=== PATIENT | female | born 1970 | race Caucasian/White ===

== ENCOUNTER → 2018-07-15 | Outpatient (CLI) | payer OTHER ==
--- NOTE | 2018-07-15 11:12 | FL ---
EXAMINATION TYPE: FL UGI air DATE OF EXAM: 07/15/2018 COMPARISON: NONE HISTORY: Epigastric and abdominal pain per order. History of hiatal hernia per patient at outside [facility]. TECHNIQUE: A double contrast UGI study is performed. A total of 58 seconds of fluoroscopic time was utilized during procedure. 47 images are saved to PACS. FINDINGS: Medical Laboratory Technicians image of the abdomen shows partial visualization of at least moderate to large size hiatal hernia with suspected abnormal twisting of stomach. There is metallic IUD in the pelvis partia lly imaged. There is levoconvex scoliosis centered L3 level noted. The esophagus shows normal motility and emptying into the stomach. There is large hiatal hernia or in trathoracic stomach with abnormal twisting as greater curvature is cranial in position relative to le sser curvature. Portion of gastric fundus and antrum is below diaphragm. There is prominence of gastr ic folds in the intrathoracic stomach. There is visualization of episodic gastroesophageal reflux int o the midesophagus. No evidence of any mass or ulcer disease. . The duodenal bulb, sweep, and proximal small bowel loops are unremarkable below the diaphragm. IMPRESSION: Large hiatal hernia or intrathoracic stomach with abnormal twisting or configuration is c onfirmed with moderate gastroesophageal reflux and mild to moderate diffuse gastritis documented.
== END ==
LOC: RADFLMAIN 10:01
PROVIDERS: ATTEND Family Medicine
DX: K44.9 Diaphragmatic hernia without obstruction or gangrene (principal)
CPT/HCPCS: 74246

== ENCOUNTER 2018-10-11 15:19 | Emergency (ER) | payer OTHER ==
[2018-10-11] MEDS ORDERED: SODIUM CHLORIDE 0.9% 1,000 ML IV STA (15:38)
--- NOTE | 2018-10-11 15:40 | ED ---
General Adult HPI - General Chief complaint: Abdominal Pain Stated complaint: Poss kidney infection Time Seen by Provider: 10/11/18 15:27 Source: patient, RN notes reviewed, old records reviewed Mode of arrival: ambulatory Limitations: no limitations - History of Present Illness Initial comments: 48-year-old female patient with past history of depression presents to ED with abdominal pain for one day. Patient states she woke up this morning had some pain in her right lower quadrant region. Patient states he now has pain in her right flank region. Patient states that this does feel similar to kidney infections she has had in the past. Patient denies any nausea vomiting diarrhea or fevers or chills. Patient denies any chest pain or shortness of breath. Systemic: Pt denies fatigue, myalgia, fever/chills, rash. Pt denies weakness, night sweats, weight loss. Neuro: Pt denies headache, visual disturbances, syncope or pre-syncope. HEENT: Pt denies ocular discharge or irritation, otalgia, rhinorrhea, pharyngitis or notable lymphadenopathy. Cardiopulmonary: Pt denies chest pain, SOB, heart palpitations, dyspnea on exertion. Abdominal/GI: Pt denies n/v/d. : Pt denies dysuria, burning w/ urination, frequency/urgency. Denies new onset urinary or bowel incontinence. MSK: Pt denies myalgia, loss of strength or function in extremities. Neuro: Pt denies new onset weakness, paresthesias. - Related Data Home Medications Medication Instructions Recorded Confirmed Ferrous Sulfate [Iron] 325 mg PO DAILY 10/11/18 10/11/18 Omeprazole 20 mg PO DAILY 10/11/18 10/11/18 Oxybutynin Chloride [Ditropan XL] 10 mg PO DAILY 10/11/18 10/11/18 Sertraline [Zoloft] 25 mg PO DAILY 10/11/18 10/11/18 Allergies Allergy/AdvReac Type Severity Reaction Status Date / Time No Known Allergies Allergy Verified 10/11/18 15:56 Review of Systems ROS Statement: Those systems with pertinent positive or pertinent negative responses have been documented in the HPI. ROS Other: All systems not noted in ROS Statement are negative. Past Medical History Past Medical History: No Reported History History of Any Multi-Drug Resistant Organisms: None Reported Past Surgical History: Tubal Ligation Past Psychological History: No Psychological Hx Reported Smoking Status: Never smoker Past Drug Use History: None Reported General Exam - General Exam Comments Initial Comments: Constitutional: NAD, AOX3, Pt has pleasant affect. HEENT: NC/AT, trachea midline, neck supple, no lymphadenopathy. Posterior pharynx non erythematous, without exudates. External ears appear normal, without discharge. Mucous membranes moist. Eyes PERRLA, EOM intact. There is no scleral icterus. No pallor noted. Cardiopulmonary: RRR, no murmurs, rubs or gallops, no JVD noted. Lungs CTAB in anterior and posterior fall. No peripheral edema. Abdominal exam: Abdomen soft and non-distended. Abdomen mildly tender to palpation in periumbilical region. Vásquez sign negative. No guarding or rigidity. Bowel sounds active in LLQ. No hepatosplenomegaly. No ecchymosis Neuro: CN II-XII grossly intact. No nuchal rigidity. MSK: No posterior calf tenderness bilaterally, homans sign negative bilaterally. Posterior tibialis and radial pulse +2 bilaterally. Sensation intact in upper and lower extremities. Full active ROM in upper and lower extremities, 5/5 stregnth. Limitations: no limitations Course Vital Signs 10/11/18 10/11/18 10/11/18 15:23 18:00 19:00 Temperature 97.4 F L Pulse Rate 82 60 70 Respiratory 22 18 20 Rate Blood Pressure 138/83 122/78 141/65 O2 Sat by Pulse 99 96 99 Oximetry 10/11/18 20:45 Temperature 98.3 F Pulse Rate 68 Respiratory 20 Rate Blood Pressure 132/88 O2 Sat by Pulse 99 Oximetry Medical Decision Making - Medical Decision Making 48-year-old female patient with past history of depression presents to ED with abdominal pain for one day. Patient states she woke up this morning had some pain in her right lower quadrant region. Patient states he now has pain in her right flank region. Patient states that this does feel similar to kidney infections she has had in the past. Patient denies any nausea vomiting diarrhea or fevers or chills. Patient denies any chest pain or shortness of breath. Patient vital signs stable, afebrile. Physical exam displayed abdomen mildly tender to periumbilical region. No CVA tenderness. No other areas of abdominal tenderness. Vásquez sign negative. Laboratory investigations revealed an impressive CBC, CMP, UA, hCG. Lactic acid within normal limits. CT abdomen and pelvis displayed right adnexal cyst. Patient was discharged and will follow up with [facility]. Patient return to ER condition worsens in any way. Case disc ussed with Dr. Morrow. - Lab Data Result diagrams: 10/11/18 16:00 10/11/18 16:00 Lab Results 10/11/18 10/11/18 10/11/18 Range/Units 16:00 16:00 16:00 WBC 13.5 H (3.8-10.6) k/uL RBC 5.06 (3.80-5.40) m/uL Hgb 15.4 (11.4-16.0) gm/dL Hct 47.0 H (34.0-46.0) % MCV 92.8 (80.0-100.0) fL MCH 30.4 (25.0-35.0) pg MCHC 32.7 (31.0-37.0) g/dL RDW 13.2 (11.5-15.5) % Plt Count 199 (150-450) k/uL Neutrophils % 88 % Lymphocytes % 7 % Monocytes % 4 % Eosinophils % 1 % Basophils % 0 % Neutrophils # 11.8 H (1.3-7.7) k/uL Lymphocytes # 1.0 (1.0-4.8) k/uL Monocytes # 0.5 (0-1.0) k/uL Eosinophils # 0.1 (0-0.7) k/uL Basophils # 0.0 (0-0.2) k/uL Sodium 137 (137-145) mmol/L Potassium 4.2 (3.5-5.1) mmol/L Chloride 105 (98-107) mmol/L Carbon Dioxide 24 (22-30) mmol/L Anion Gap 8 mmol/L BUN 9 (7-17) mg/dL Creatinine 0.65 (0.52-1.04) mg/dL Est GFR (CKD-EPI)AfAm >90 (>60 ml/min/1.73 sqM) Est GFR (CKD-EPI)NonAf >90 (>60 ml/min/1.73 sqM) Glucose 106 H (74-99) mg/dL Plasma Lactic Acid [place] 0.8 (0.7-2.0) mmol/L Calcium 8.8 (8.4-10.2) mg/dL Total Bilirubin 0.8 (0.2-1.3) mg/dL AST 32 (14-36) U/L ALT 29 (9-52) U/L Alkaline Phosphatase 103 (38-126) U/L Total Protein 6.9 (6.3-8.2) g/dL Albumin 3.9 (3.5-5.0) g/dL Lipase 46 (23-300) U/L Urine Color Urine Appearance (Clear) Urine pH (5.0-8.0) Ur Specific [place] (1.001-1.035) Urine Protein (Negative) Urine Glucose (UA) (Negative) Urine Ketones (Negative) Urine Blood (Negative) Urine Nitrite (Negative) Urine Bilirubin (Negative) Urine Urobilinogen (<2.0) mg/dL Ur Leukocyte Esterase (Negative) Urine RBC (0-5) /hpf Urine WBC (0-5) /hpf Ur Squamous Epith Cells (0-4) /hpf Urine Mucus (None) /hpf Urine HCG, Qual (Not Detectd) 10/11/18 10/11/18 Range/Units 17:15 17:15 WBC (3.8-10.6) k/uL RBC (3.80-5.40) m/uL Hgb (11.4-16.0) gm/dL Hct (34.0-46.0) % MCV (80.0-100.0) fL MCH (25.0-35.0) pg MCHC (31.0-37.0) g/dL RDW (11.5-15.5) % Plt Count (150-450) k/uL Neutrophils % % Lymphocytes % % Monocytes % % Eosinophils % % Basophils % % Neutrophils # (1.3-7.7) k/uL Lymphocytes # (1.0-4.8) k/uL Monocytes # (0-1.0) k/uL Eosinophils # (0-0.7) k/uL Basophils # (0-0.2) k/uL Sodium (137-145) mmol/L Potassium (3.5-5.1) mmol/L Chloride (98-107) mmol/L Carbon Dioxide (22-30) mmol/L Anion Gap mmol/L BUN (7-17) mg/dL Creatinine (0.52-1.04) mg/dL Est GFR (CKD-EPI)AfAm (>60 ml/min/1.73 sqM) Est GFR (CKD-EPI)NonAf (>60 ml/min/1.73 sqM) Glucose (74-99) mg/dL Plasma Lactic Acid [place] (0.7-2.0) mmol/L Calcium (8.4-10.2) mg/dL Total Bilirubin (0.2-1.3) mg/dL AST (14-36) U/L ALT (9-52) U/L Alkaline Phosphatase (38-126) U/L Total Protein (6.3-8.2) g/dL Albumin (3.5-5.0) g/dL Lipase (23-300) U/L Urine Color Yellow Urine Appearance Cloudy H (Clear) Urine pH 8.0 (5.0-8.0) Ur Specific [place] 1.014 (1.001-1.035) Urine Protein Trace H (Negative) Urine Glucose (UA) Negative (Negative) Urine Ketones Negative (Negative) Urine Blood Moderate H (Negative) Urine Nitrite Negative (Negative) Urine Bilirubin Negative (Negative) Urine Urobilinogen 2.0 (<2.0) mg/dL Ur Leukocyte Esterase Small H (Negative) Urine RBC 1 (0-5) /hpf Urine WBC 1 (0-5) /hpf Ur Squamous Epith Cells 6 H (0-4) /hpf Urine Mucus Rare H (None) /hpf Urine HCG, Qual Not Detected (Not Detectd) Disposition Clinical Impression: Abdominal pain Disposition: HOME SELF-CARE Condition: Stable Instructions (If sedation given, give patient instructions): Abdominal Pain (ED) Additional Instructions: Patient to adhere to previously discussed treatment plan and will take medication(s) as directed. Patient to follow up with PCP in 1-2 days. Patient to return to ED if symptoms do not improve. Follow-up with primary care provider in 1-2 days. Follow-up with OB consult for evaluation of possible adnexal cyst. Is patient prescribed a controlled substance at d/c from ED?: No Referrals: Kasey Nieves DO [Primary Care Provider] - 1-2 days Cm Wesley MD [STAFF PHYSICIAN] - 1-2 days
[2018-10-11 16:12] LABS: Basophils % (A) 0 %; Eosinophils # (A) 0.1 k/uL (0-0.7); Eosinophils % (A) 1 %; HGB 15.4 gm/dL (11.4-16.0); Lymphocytes % (A) 7 %; MCH 30.4 pg (25.0-35.0); MCHC 32.7 g/dL (31.0-37.0); MCV 92.8 fL (80.0-100.0); Mean Platelet Volume 8.6; Monocytes # (A) 0.5 k/uL (0-1.0); Monocytes % (A) 4 %; Neutrophils # (A) 11.8 k/uL (1.3-7.7); Neutrophils % (A) 88 %; Platelet Count 199 k/uL (150-450); RBC 5.06 m/uL (3.80-5.40); RDW 13.2 % (11.5-15.5); WBC 13.5 k/uL (3.8-10.6)
[2018-10-11 16:21] LABS: ALT 29 U/L (9-52); AST 32 U/L (14-36); Albumin 3.9 g/dL (3.5-5.0); Alkaline Phosphatase 103 U/L (38-126); Anion Gap 8 mmol/L; Blood Urea Nitrogen 9 mg/dL (7-17); Calcium 8.8 mg/dL (8.4-10.2); Carbon Dioxide 24 mmol/L (22-30); Chloride 105 mmol/L (98-107); Glucose 106 mg/dL (74-99); Lipase 46 U/L (23-300); Potassium 4.2 mmol/L (3.5-5.1); Sodium 137 mmol/L (137-145); Total Bilirubin 0.8 mg/dL (0.2-1.3); Total Protein 6.9 g/dL (6.3-8.2)
[2018-10-11 17:49] LABS: Appearance,Urine Cloudy (Clear); Bilirubin,Urine Negative (Negative); Blood,Urine Moderate (Negative); Color,Urine Yellow; Glucose,Urine (UA) Negative (Negative); Ketones,Urine Negative (Negative); Leukocyte Esterase,Urine Small (Negative); Mucus,Urine Rare /hpf; Nitrite,Urine Negative (Negative); Protein,Urine Trace (Negative); RBC,Urine 1 /hpf (0-5); Specific Gravity,Urine 1.014 (1.001-1.035); Squamous Epithelial Cell,Urine 6 /hpf (0-4); WBC,Urine 1 /hpf (0-5)
--- NOTE | 2018-10-11 18:57 | CT ---
EXAMINATION TYPE: CT abdomen pelvis w con DATE OF EXAM: 10/11/2018 COMPARISON: None HISTORY: Right lower quadrant and right flank pain today. CT DLP: 1597.4 mGycm Automated exposure control for dose reduction was used. TECHNIQUE: Helical acquisition of images was performed from the lung bases through the pelvis. CONTRAST: Performed without Oral Contrast and with IV Contrast, patient injected with 100 mL of Isovu e 300. FINDINGS: LUNG BASES: No acute process. However, nearly the entire stomach is intrathoracic in position; only t he antrum remains intra-abdominal. LIVER/BILIARY: No definite acute process. However, there is diffuse biliary tree ductal prominence, b oth intrahepatic and extrahepatic. LFT correlation for significance requested. PANCREAS: No significant abnormality is seen. SPLEEN: No significant abnormality is seen. ADRENALS: No significant abnormality is seen. KIDNEYS: No significant abnormality is seen. PERITONEAL CAVITY: No pneumoperitoneum. RETROPERITONEAL ADENOPATHY: None visualized REPRODUCTIVE ORGANS: There is a 5 cm in diameter cyst like right adnexal mass, which cannot be well c haracterized. Two-week for six-week follow-up LE Doppler ultrasound can further characterize this fin ding, located posterior to the uterus to the right of midline. Associated small volume of cul-de-sac fluid is noted. Intrauterine device is noted. URINARY BLADDER: No significant abnormality is seen. PELVIC ADENOPATHY: None visualized. OSSEOUS STRUCTURES: No significant abnormality is seen. BOWEL: There is no bowel obstruction. The cecum is relatively high riding, at the level of the super ior iliac crest. The appendix appears to be retrocecal in position, arising cephalad there is asymmet panchito mild indistinct right lateral conal fascial thickening with scant. No fluid in the right paracoli c gutter of the right upper quadrant. 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 This second st ructure is smoothly marginated and radiologically unlikely to be clinically significant at this time. This can be further characterized with nuclear medicine Meckel's diverticulum imaging if there are c linical concerns for significance. OTHER: No acute vascular findings. Bilateral inguinal lymph nodes are noted, top normal in size; would request clinical surveillance fo r significance. IMPRESSION: 1. Mild right lateral conal fascia ill-defined thickening, with associate adjacent retrocecal append ix with normal appendix dimensions at present. Therefore, the study is not positive for appendicitis at this time. 2. 5 cm mean diameter right adnexal cyst like mass. 3. Intrahepatic and extrahepatic biliary tree caliber prominence. 4. Intrathoracic stomach. 5. Bilateral inguinal lymph nodes.
[2018-10-11 19:47] VITALS: RESP 20
[2018-10-11] MEDS ORDERED: Acetaminophen-Codeine 300-30mg TAB PO STA (20:40)
[2018-10-11 20:48] VITALS: BP 132/88; PULSE 68; TEMP 98.3
== END 2018-10-11 20:45 | disposition home or self-care (01) ==
LOC: EC 15:19
DX: R10.31 Right lower quadrant pain (principal); N83.8 Other noninflammatory disorders of ovary, fallopian tube and broad ligament; F32.9 Major depressive disorder, single episode, unspecified; Z79.899 Other long term (current) drug therapy; Z98.51 Tubal ligation status
CPT/HCPCS: 36415; 80053; 83605; 83690; 85025; 81001; 81025; 87086; 74177; 99284; 96360; Q9967

== ENCOUNTER → 2022-02-27 | Outpatient (CLI) | payer OTHER | END | disposition home or self-care (01) | LOC: RADMAMWWP 14:54 | PROVIDERS: ATTEND Family Medicine | DX: Z12.31 Encounter for screening mammogram for malignant neoplasm of breast (principal) | CPT/HCPCS: 77067 ==

== ENCOUNTER 2022-04-13 04:37 | Emergency (ER) | payer OTHER ==
[2022-04-13] MEDS ORDERED: SODIUM CHLORIDE 0.9% 500 ML 500 ML IV STA (04:45)
[2022-04-13 04:46] VITALS: TEMP 96.9
--- NOTE | 2022-04-13 04:46 | ED ---
Nausea/Vomiting/Diarrhea HPI <Fredi Nieves - Last Filed: 04/13/22 15:22> - General Source: EMS, RN notes reviewed, old records reviewed Mode of arrival: EMS Limitations: no limitations - History of Present Illness MD complaint: nausea, vomiting, diarrhea -: days(s) (2) Description of Vomiting: food contents, watery Description of Diarrhea: water, mucous Associated Abdominal Pain: Yes Location: diffuse Radiation: none Severity: mild Quality: cramping, aching Consistency: intermittent Improves with: none Worsens with: eating Context: possible food poisoning Associated Symptoms: loss of appetite, nausea/vomiting, weakness <Amadou Cade - Last Filed: 04/13/22 21:36> - General Chief complaint: Nausea/Vomiting/Diarrhea Stated complaint: Nausea, vomiting Time Seen by Provider: 04/13/22 04:44 - History of Present Illness Initial comments: This is a 52-year-old female the ER today. Patient presents by EMS for nausea vomiting diarrhea and crampy abdominal pain for 2 days patient states she was at [employer] maybe some bad food. No fevers no travel history no known other complaints (Amadou Cade) - Related Data Home Medications Medication Instructions Recorded Confirmed Ferrous Sulfate [Iron] 325 mg PO DAILY 10/11/18 10/11/18 Omeprazole 20 mg PO DAILY 10/11/18 10/11/18 Oxybutynin Chloride [Ditropan XL] 10 mg PO DAILY 10/11/18 10/11/18 Sertraline [Zoloft] 25 mg PO DAILY 10/11/18 10/11/18 Allergies Allergy/AdvReac Type Severity Reaction Status Date / Time No Known Allergies Allergy Verified 04/13/22 04:46 Review of Systems ROS Other: All systems not noted in ROS Statement are negative. <Fredi Nieves - Last Filed: 04/13/22 15:22> ROS Other: All systems not noted in ROS Statement are negative. <Amadou Cade - Last Filed: 04/13/22 21:36> ROS Statement: Those systems with pertinent positive or pertinent negative responses have been documented in the HPI. Past Medical History Past Medical History: No Reported History History of Any Multi-Drug Resistant Organisms: None Reported Past Surgical History: Tubal Ligation Past Psychological History: No Psychological Hx Reported Past Drug Use History: None Reported <Amadou Cade - Last Filed: 04/13/22 21:36> General Exam Limitations: no limitations General appearance: alert, in no apparent distress Head exam: Present: atraumatic, normocephalic, normal inspection Eye exam: Present: normal appearance, PERRL, EOMI. Absent: scleral icterus, conjunctival injection, periorbital swelling ENT exam: Present: normal exam, mucous membranes moist Neck exam: Present: normal inspection. Absent: tenderness, meningismus, lymphadenopathy Respiratory exam: Present: normal lung sounds bilaterally. Absent: respiratory distress, wheezes, rales, rhonchi, stridor Cardiovascular Exam: Present: regular rate, normal rhythm, normal heart sounds. Absent: systolic murmur, diastolic murmur, rubs, gallop, clicks GI/Abdominal exam: Present: soft, distended, tenderness, normal bowel sounds. Absent: guarding, rebound, rigid Extremities exam: Present: normal inspection, full ROM, normal capillary refill. Absent: tenderness, pedal edema, joint swelling, calf tenderness Back exam: Present: normal inspection Neurological exam: Present: alert, oriented X3, CN II-XII intact Psychiatric exam: Present: normal affect, normal mood Skin exam: Present: warm, dry, intact, normal color. Absent: rash <Amadou Cade - Last Filed: 04/13/22 21:36> Course <Amadou Cade - Last Filed: 04/13/22 21:36> Vital Signs 04/13/22 04/13/22 04:41 06:22 Temperature 96.9 F L Pulse Rate 70 77 Respiratory 18 20 Rate Blood Pressure 137/83 135/100 O2 Sat by Pulse 98 98 Oximetry - Reevaluation(s) Reevaluation #1: 04/13/22 medical record is reviewed (Amadou Cade) Reevaluation #2: 04/13/22 patient improving symptomatically (Amadou Cade) Reevaluation #3: 04/13/22 patient informed of results and questions answered (Amadou Cade) Medical Decision Making - Lab Data Result diagrams: 04/13/22 04:59 04/13/22 05:40 <Fredi Nieves - Last Filed: 04/13/22 15:22> - Lab Data Result diagrams: 04/13/22 04:59 04/13/22 05:40 - EKG Data -: EKG Interpreted by Me (EKG is sinus 76 MI 133 QRS 12 QTc 433) - Radiology Data Radiology results: report reviewed (Chest x-ray negative CTA chest negative, CT abdomen and pelvis positive paraEsophageal fistula possible ischemia), image reviewed <Amadou Cade - Last Filed: 04/13/22 21:36> - Medical Decision Making Patient is a 52-year-old female who presents to the emergency department with multiple days of nausea and vomiting as well as abdominal pain and chest pain presents emergency for further evaluation. She was signed out to me pending results of CT imaging. Initial workup was remarkable for leukocytosis of 23. Appears dehydrated and she also has elevated hemoglobin at this time. Troponin is undetectable. Lipase is slightly elevated to 338. Urinalysis is still pending. Lactic acid and blood cultures were not obtained and they were ordered by myself. CT angiogram of the chest revealed no signs of aortic dissection and no evidence of PE. CT of the abdomen and pelvis revealed a tight for dilated paraesophageal hernia with organoaxial volvulus as well as a decompressed duodenum and fluid-filled visualized esophagus. No pneumatosis. Trace perigastric free fluid. Cannot exclude ischemia. At this time I did empirically start the patient on broad-spectrum antibiotics Zosyn and vancomycin. Blood cultures were obtained and sent. Lactic acid was obtained and was slightly elevated at 2.2. She is already on maintenance IV fluids. The radiologist's read me his findings at 7:[address] Chatman and spoke with him at 7:20 AM. He states the patient requires a thoracic surgeon, recommended transfer if our surgeons refuse. I did reach out to our CT surgeons, and spoke with the mid-level provider Elias Khan.I spoke with Elias and he reached out to his attending physician and got back to me at 8 AM. They recommended transfer to higher level care. I spoke with the patient and updated her. She was in agreement with transfer. She has no preference at this time. We Did Discuss [facility] initially and she was in agreement. We Did Contact [facility]. I spoke with CT surgeon there Dr. Moore who accepted the patient. Was in agreement with the empiric anabiotics patient was started on as well as IV hydration, and nothing by mouth. Requested to be attempt an NG tube prior to transfer. The ER accepting doc is Dr. Sagastume who was notified by [facility] transfer team. I opted the patient she was in agreement this plan. Patient will be transferred in serious but stable condition. She is hemodynamically stable at this time. NG tube placement was successful, however patient did have multiple episodes of emesis and it was irritating her throat and she pulled it out. We will not replace it at this time. (Fredi Nieves) - Lab Data Lab Results 04/13/22 04/13/22 04/13/22 Range/Units 04:59 05:40 05:40 WBC 23.4 H (3.8-10.6) k/uL RBC 5.54 H (3.80-5.40) m/uL Hgb 16.8 H (11.4-16.0) gm/dL Hct 49.6 H (34.0-46.0) % MCV 89.6 (80.0-100.0) fL MCH 30.4 (25.0-35.0) pg MCHC 33.9 (31.0-37.0) g/dL RDW 13.0 (11.5-15.5) % Plt Count 150 (150-450) k/uL MPV 11.0 Neutrophils % 91 % Lymphocytes % 3 % Monocytes % 4 % Eosinophils % 0 % Basophils % 0 % Neutrophils # 21.4 H (1.3-7.7) k/uL Lymphocytes # 0.7 L (1.0-4.8) k/uL Monocytes # 1.0 (0-1.0) k/uL Eosinophils # 0.1 (0-0.7) k/uL Basophils # 0.1 (0-0.2) k/uL Sodium 144 (137-145) mmol/L Potassium 3.5 (3.5-5.1) mmol/L Chloride 96 L (98-107) mmol/L Carbon Dioxide 36 H (22-30) mmol/L Anion Gap 12 mmol/L BUN 29 H (7-17) mg/dL Creatinine 1.11 H (0.52-1.04) mg/dL Est GFR (CKD-EPI)AfAm 66 (>60 ml/min/1.73 sqM) Est GFR (CKD-EPI)NonAf 57 (>60 ml/min/1.73 sqM) Glucose 189 H (74-99) mg/dL Lactic Ac Sepsis Rflx Plasma Lactic Acid [place] (0.7-2.0) mmol/L Calcium 9.9 (8.4-10.2) mg/dL Phosphorus 3.4 (2.5-4.5) mg/dL Magnesium 2.4 H (1.6-2.3) mg/dL Total Bilirubin 0.9 (0.2-1.3) mg/dL AST 36 (14-36) U/L ALT 30 (4-34) U/L Alkaline Phosphatase 137 H (38-126) U/L Troponin I <0.012 (0.000-0.034) ng/mL Total Protein 8.4 H (6.3-8.2) g/dL Albumin 5.0 (3.5-5.0) g/dL Amylase 45 (30-110) U/L Lipase 338 H (23-300) U/L 04/13/22 04/13/22 Range/Units 07:51 08:23 WBC (3.8-10.6) k/uL RBC (3.80-5.40) m/uL Hgb (11.4-16.0) gm/dL Hct (34.0-46.0) % MCV (80.0-100.0) fL MCH (25.0-35.0) pg MCHC (31.0-37.0) g/dL RDW (11.5-15.5) % Plt Count (150-450) k/uL MPV Neutrophils % % Lymphocytes % % Monocytes % % Eosinophils % % Basophils % % Neutrophils # (1.3-7.7) k/uL Lymphocytes # (1.0-4.8) k/uL Monocytes # (0-1.0) k/uL Eosinophils # (0-0.7) k/uL Basophils # (0-0.2) k/uL Sodium (137-145) mmol/L Potassium (3.5-5.1) mmol/L Chloride (98-107) mmol/L Carbon Dioxide (22-30) mmol/L Anion Gap mmol/L BUN (7-17) mg/dL Creatinine (0.52-1.04) mg/dL Est GFR (CKD-EPI)AfAm (>60 ml/min/1.73 sqM) Est GFR (CKD-EPI)NonAf (>60 ml/min/1.73 sqM) Glucose (74-99) mg/dL Lactic Ac Sepsis Rflx Y Plasma Lactic Acid [place] 2.2 H* (0.7-2.0) mmol/L Calcium (8.4-10.2) mg/dL Phosphorus (2.5-4.5) mg/dL Magnesium (1.6-2.3) mg/dL Total Bilirubin (0.2-1.3) mg/dL AST (14-36) U/L ALT (4-34) U/L Alkaline Phosphatase (38-126) U/L Troponin I (0.000-0.034) ng/mL Total Protein (6.3-8.2) g/dL Albumin (3.5-5.0) g/dL Amylase (30-110) U/L Lipase (23-300) U/L Critical Care Time Critical Care Time: Yes Total Critical Care Time: 31 <Amadou Cade - Last Filed: 04/13/22 21:36> Disposition Time of Disposition: 08:32 - Out of Hospital Transfer - Req. Specs Out of Hospital Transfer - Requested Specifics: Other Emergency Center (Transfer to [facility] for Thoracic surgery.) <Fredi Nieves - Last Filed: 04/13/22 15:22> <Amadou Cade - Last Filed: 04/13/22 21:36> Clinical Impression: Paraesophageal hernia, Organoaxial gastric volvulus, Nausea and vomiting, De hydration, Gastroenteritis, Leukocytosis Disposition: OTHER INSTITUTION NOT DEFINED Condition: Serious Referrals: Kasey Nieves DO [Primary Care Provider] - 1-2 days
[2022-04-13 05:13] LABS: Basophils # (A) 0.1 k/uL (0-0.2); Basophils % (A) 0 %; Eosinophils # (A) 0.1 k/uL (0-0.7); Eosinophils % (A) 0 %; HCT 49.6 % (34.0-46.0); HGB 16.8 gm/dL (11.4-16.0); Lymphocytes # (A) 0.7 k/uL (1.0-4.8); Lymphocytes % (A) 3 %; MCH 30.4 pg (25.0-35.0); MCHC 33.9 g/dL (31.0-37.0); MCV 89.6 fL (80.0-100.0); Monocytes % (A) 4 %; Neutrophils # (A) 21.4 k/uL (1.3-7.7); Neutrophils % (A) 91 %; Platelet Count 150 k/uL (150-450); RBC 5.54 m/uL (3.80-5.40); WBC 23.4 k/uL (3.8-10.6)
[2022-04-13 06:17] LABS: Calcium 9.9 mg/dL (8.4-10.2); Magnesium 2.4 mg/dL (1.6-2.3); Phosphorus 3.4 mg/dL (2.5-4.5); Potassium 3.5 mmol/L (3.5-5.1); Total Bilirubin 0.9 mg/dL (0.2-1.3); Total Protein 8.4 g/dL (6.3-8.2)
[2022-04-13 06:22] VITALS: BP 135/100; PULSE 77; RESP 20
[2022-04-13] MEDS ORDERED: MORPHINE SULFATE 4 MG/ML SYRINGE IVP STA (06:51)
[2022-04-13] MEDS ORDERED: SODIUM CHLORIDE 0.9% 1,000 ML IV STA (06:51)
[2022-04-13] MEDS ORDERED: ONDANSETRON 4 MG/2 ML VIAL IVP STA ×2 (06:51→08:36)
[2022-04-13] MEDS ORDERED: SODIUM CHLORIDE 0.9% 1,000 ML IV SCH (07:00)
--- NOTE | 2022-04-13 07:02 | CT ---
EXAMINATION TYPE: CT angio chest CT DLP: 591.4 mGycm, Automated exposure control for dose reduction was used. DATE OF EXAM: 04/13/2022 6:12 AM COMPARISON: CT abdomen pelvis 04/13/2022. CLINICAL INDICATION:Female, 52 years old with history of pain; N/V SINCE WEDNESDAY, THINKS SHE ATE BAD CHEL SLAW, BLACK COLOR IN VOMIT, PAIN IN LT SHOULDER ALL THE WAY DOWN TO HER ABDOMEN. TECHNIQUE/CONTRAST: CTA scan of the thorax is performed with IV Contrast, patient injected with 100 mL of Isovue 370, pul monary embolism protocol. MIP images are created and reviewed. FINDINGS: Pulmonary Artery: There is no evidence for a filling defect within the pulmonary vasculature to sugge st acute pulmonary embolism. The pulmonary artery is of normal size. Lungs/Pleura: No evidence of focal consolidation, pleural effusion or pneumothorax. Few regions of richardson bsegmental atelectasis. Airway: Large airways are patent. Heart: Heart is within normal limits for size.. Vasculature: No evidence of aortic aneurysm. Mediastinum: No gross evidence of adenopathy. Musculoskeletal: No acute osseous abnormalities. Multilevel Schmorl's nodes. Soft Tissues: Unremarkable. Lower neck: No significant findings. Upper Abdomen: Fluid-filled distended esophagus with type III paraesophageal hernia. Please refer to dedicated CT abdomen pelvis of same day for findings. IMPRESSION: 1. No evidence of pulmonary embolism. 2. Fluid-filled distended esophagus with type IV paraesophageal hernia. Please refer to dedicated CT abdomen pelvis same day for findings.
[2022-04-13] MEDS ORDERED: VANCOMYCIN IV PER PHARMACY 1 EACH MISC MISCELLANE PRN (07:19)
--- NOTE | 2022-04-13 07:19 | CT ---
EXAMINATION TYPE: CT abdomen pelvis w con CT DLP: 3.2 mGycm, Automated exposure control for dose reduction was used. DATE OF EXAM: 04/13/2022 6:14 AM COMPARISON: CTA chest 04/13/2022, CT abdomen pelvis of 10/11/2018 CLINICAL INDICATION:Female, 52 years old with history of pain; N/V SINCE WEDNESDAY, THINKS SHE ATE BAD CHEL SLAW, BLACK COLOR IN VOMIT, PAIN IN LT SHOULDER ALL THE WAY DOWN TO HER ABDOMEN. TECHNIQUE: Standard CT of the abdomen and pelvis following the administration of 100 cc of Isovue 3 70 IV contrast material. Coronal and sagittal reformats were performed. FINDINGS: LOWER CHEST: Please refer to dedicated CTA chest the same day for findings. ABDOMEN LIVER: Unremarkable GALLBLADDER AND BILE DUCTS: Unremarkable. PANCREAS: Unremarkable. SPLEEN: Unremarkable. ADRENAL GLANDS: Unremarkable. KIDNEYS AND URETERS: No evidence of hydronephrosis or renal calculus. Subcentimeter hypodense lesion within the left inferior pole which is too small to characterize. PELVIS BLADDER: Incompletely distended but grossly unremarkable. REPRODUCTIVE: IUD is present within the uterus. Previously seen right adnexal cyst is no longer visua lized. ABDOMEN & PELVIS STOMACH AND BOWEL: Fluid filled visualized esophagus with type IV fluid and debris-filled dilated par aesophageal hernia with organoaxial volvulus and decompressed duodenum. No pneumatosis. The appendix is within normal limits. PERITONEUM: No evidence of pneumoperitoneum. Trace perigastric free fluid. VASCULATURE: No evidence of aortic aneurysm. MUSCULOSKELETAL: No acute osseous abnormalities. Multilevel Schmorl's nodes. LYMPH NODES: No gross evidence for lymphadenopathy. SOFT TISSUE/ABDOMINAL WALL: Unremarkable IMPRESSION: Type IV dilated paraesophageal hernia with organoaxial volvulus with decompressed duodenum and fluid- filled visualized esophagus. No pneumatosis. Trace perigastric free fluid. Cannot exclude ischemia. Findings called to and discussed with Dr. Nieves at 7:16 AM on 04/13/2022.
[2022-04-13] MEDS ORDERED: PIPERACILLIN-TAZOBACTAM 3.375 GM in SODIUM CHLORIDE 0.9% 100 ML IVPB STA (07:21)
[2022-04-13] MEDS ORDERED: VANCOMYCIN 2,000 MG in SODIUM CHLORIDE 0.9% 500 ML 500 ML IVPB ONE (08:00)
[2022-04-13] MEDS ORDERED: PIPERACILLIN-TAZOBACTAM 3.375 GM in SODIUM CHLORIDE 0.9% 100 ML IVPB SCH (12:00)
[2022-04-14] MEDS ORDERED: VANCOMYCIN 2,000 MG in SODIUM CHLORIDE 0.9% 500 ML 500 ML IVPB SCH (06:00)
== END 2022-04-13 09:45 | disposition other institution (70) ==
LOC: EC 04:37
DX: K44.9 Diaphragmatic hernia without obstruction or gangrene (principal); K56.2 Volvulus; D72.829 Elevated white blood cell count, unspecified; K52.9 Noninfective gastroenteritis and colitis, unspecified; E86.0 Dehydration
CPT/HCPCS: 36415; 80053; 82150; 83605; 83690; 83735; 84100; 84484; 85025; 87040; 71275; 74177; 99291; 96365; 96366; 96375 ×2; 96376; 96361; J2543; J2270; J2405; Q9967; 93005

== ENCOUNTER 2022-04-22 23:54 | Emergency (ER) | payer OTHER ==
[2022-04-22] MEDS ORDERED: PANTOPRAZOLE 40 MG/10 ML VIAL IVP STA (23:59)
[2022-04-22] MEDS ORDERED: SODIUM CHLORIDE 0.9% 1,000 ML IV STA ×2 (23:59)
[2022-04-22] MEDS ORDERED: MORPHINE SULFATE 4 MG/ML SYRINGE IV STA (23:59)
[2022-04-22] MEDS ORDERED: SODIUM CHLORIDE 0.9% 500 ML 500 ML IV STA (23:59)
[2022-04-22] MEDS ORDERED: METOCLOPRAMIDE 5 MG/ML 2 ML VIAL IVP STA (23:59)
[2022-04-22] MEDS ORDERED: ONDANSETRON 4 MG/2 ML VIAL IVP STA (23:59)
--- NOTE | 2022-04-23 | ED ---
Recheck HPI - General Stated Complaint: Vomiting Time Seen by Provider: 04/22/22 23:59 Source: RN notes reviewed, old records reviewed, Caregiver Mode of arrival: EMS Limitations: no limitations - History of Present Illness Initial Comments: This is a 52-year-old female to the emergency room for evaluation. Patient for intractable nausea vomiting severe abdominal pain, persistent vomiting believes maybe bloody vomiting. No lightheadedness or dizziness no recent fevers, recent evaluation for surgery did not apparently surgery and is supposed to follow up with surgical physician. Patient does not feel well MD Complaint: medication refill request -: hour(s) Returns Today for: persistent/worsening pain related to initial visit Symptoms Since Prior Visit: worsening pain Associated Symptoms: chest pain, shortness of breath, nausea, abdominal pain Treatments Prior to Arrival: Given Pain Meds on - Related Data Home Medications Medication Instructions Recorded Confirmed Ferrous Sulfate [Iron] 325 mg PO DAILY 10/11/18 10/11/18 Omeprazole 20 mg PO DAILY 10/11/18 10/11/18 Oxybutynin Chloride [Ditropan XL] 10 mg PO DAILY 10/11/18 10/11/18 Sertraline [Zoloft] 25 mg PO DAILY 10/11/18 10/11/18 Allergies Allergy/AdvReac Type Severity Reaction Status Date / Time No Known Allergies Allergy Verified 04/22/22 23:59 Review of Systems ROS Statement: Those systems with pertinent positive or pertinent negative responses have been documented in the HPI. ROS Other: All systems not noted in ROS Statement are negative. Past Medical History Past Medical History: No Reported History History of Any Multi-Drug Resistant Organisms: None Reported Past Surgical History: Tubal Ligation Past Psychological History: No Psychological Hx Reported Past Drug Use History: None Reported General Exam General appearance: alert, in no apparent distress Head exam: Present: atraumatic, normocephalic, normal inspection Eye exam: Present: normal appearance, PERRL, EOMI. Absent: scleral icterus, conjunctival injection, periorbital swelling ENT exam: Present: normal exam, mucous membranes moist Neck exam: Present: normal inspection. Absent: tenderness, meningismus, lymphadenopathy Respiratory exam: Present: normal lung sounds bilaterally. Absent: respiratory distress, wheezes, rales, rhonchi, stridor Cardiovascular Exam: Present: regular rate, normal rhythm, normal heart sounds. Absent: systolic murmur, diastolic murmur, rubs, gallop, clicks GI/Abdominal exam: Present: soft, normal bowel sounds. Absent: distended, tenderness, guarding, rebound, rigid Extremities exam: Present: normal inspection, full ROM, normal capillary refill. Absent: tenderness, pedal edema, joint swelling, calf tenderness Back exam: Present: normal inspection Neurological exam: Present: alert, oriented X3, CN II-XII intact Psychiatric exam: Present: normal affect, normal mood Skin exam: Present: warm, dry, intact, normal color. Absent: rash Course Vital Signs 04/22/22 23:59 Temperature 98.1 F Pulse Rate 82 Respiratory 15 Rate Blood Pressure 126/89 O2 Sat by Pulse 100 Oximetry - Reevaluation(s) Reevaluation #1: 04/23/22 03:31 Medical records reviewed Reevaluation #2: 04/23/22 03:31 Patient symptoms improved Reevaluation #3: 04/23/22 03:31 Patient informed results questions answered - Consultations Consultation #1: Spoke with [facility] who agree to accept transfer Medical Decision Making - Medical Decision Making 52 female DF for evaluation patient be transferred under care of own surgeon for hiatal hernia with gastric L obstruction persistent nausea vomiting possible GI bleed - Lab Data Result diagrams: 04/23/22 00:40 04/23/22 00:40 Lab Results 04/23/22 04/23/22 04/23/22 Range/Units 00:40 00:40 00:40 WBC 20.6 H (3.8-10.6) k/uL RBC 5.19 (3.80-5.40) m/uL Hgb 15.6 (11.4-16.0) gm/dL Hct 46.9 H (34.0-46.0) % MCV 90.4 (80.0-100.0) fL MCH 30.1 (25.0-35.0) pg MCHC 33.3 (31.0-37.0) g/dL RDW 12.8 (11.5-15.5) % Plt Count 228 (150-450) k/uL MPV 10.2 Neutrophils % 92 % Lymphocytes % 3 % Monocytes % 4 % Eosinophils % 1 % Basophils % 0 % Neutrophils # 18.8 H (1.3-7.7) k/uL Lymphocytes # 0.6 L (1.0-4.8) k/uL Monocytes # 0.9 (0-1.0) k/uL Eosinophils # 0.1 (0-0.7) k/uL Basophils # 0.1 (0-0.2) k/uL PT 11.5 (9.0-12.0) sec INR 1.1 (<1.2) APTT 23.0 (22.0-30.0) sec Sodium 140 (137-145) mmol/L Potassium 3.5 (3.5-5.1) mmol/L Chloride 99 (98-107) mmol/L Carbon Dioxide 34 H (22-30) mmol/L Anion Gap 7 mmol/L BUN 12 (7-17) mg/dL Creatinine 0.71 (0.52-1.04) mg/dL Est GFR (CKD-EPI)AfAm >90 (>60 ml/min/1.73 sqM) Est GFR (CKD-EPI)NonAf >90 (>60 ml/min/1.73 sqM) Glucose 154 H (74-99) mg/dL Plasma Lactic Acid Israel (0.7-2.0) mmol/L Calcium 9.0 (8.4-10.2) mg/dL Total Bilirubin 0.8 (0.2-1.3) mg/dL AST 23 (14-36) U/L ALT 26 (4-34) U/L Alkaline Phosphatase 105 (38-126) U/L Total Protein 6.8 (6.3-8.2) g/dL Albumin 4.1 (3.5-5.0) g/dL Amylase 52 (30-110) U/L Lipase 128 (23-300) U/L 04/23/22 Range/Units 00:40 WBC (3.8-10.6) k/uL RBC (3.80-5.40) m/uL Hgb (11.4-16.0) gm/dL Hct (34.0-46.0) % MCV (80.0-100.0) fL MCH (25.0-35.0) pg MCHC (31.0-37.0) g/dL RDW (11.5-15.5) % Plt Count (150-450) k/uL MPV Neutrophils % % Lymphocytes % % Monocytes % % Eosinophils % % Basophils % % Neutrophils # (1.3-7.7) k/uL Lymphocytes # (1.0-4.8) k/uL Monocytes # (0-1.0) k/uL Eosinophils # (0-0.7) k/uL Basophils # (0-0.2) k/uL PT (9.0-12.0) sec INR (<1.2) APTT (22.0-30.0) sec Sodium (137-145) mmol/L Potassium (3.5-5.1) mmol/L Chloride (98-107) mmol/L Carbon Dioxide (22-30) mmol/L Anion Gap mmol/L BUN (7-17) mg/dL Creatinine (0.52-1.04) mg/dL Est GFR (CKD-EPI)AfAm (>60 ml/min/1.73 sqM) Est GFR (CKD-EPI)NonAf (>60 ml/min/1.73 sqM) Glucose (74-99) mg/dL Plasma Lactic Acid Israel 1.7 (0.7-2.0) mmol/L Calcium (8.4-10.2) mg/dL Total Bilirubin (0.2-1.3) mg/dL AST (14-36) U/L ALT (4-34) U/L Alkaline Phosphatase (38-126) U/L Total Protein (6.3-8.2) g/dL Albumin (3.5-5.0) g/dL Amylase (30-110) U/L Lipase (23-300) U/L - Radiology Data Radiology results: image reviewed Interpreted by me: CT abdomen and pelvis is persistent for likely gastric outlet obstruction with GI consult need Disposition Clinical Impression: Paraesophageal hernia, Organoaxial gastric volvulus, Nausea and vomiting, Gastroenteritis, Leukocytosis, Dehydration Disposition: TRANSFER TO PSYCH HOSP/UNIT Condition: Fair Is patient prescribed a controlled substance at d/c from ED?: No Referrals: aKsey Nieves DO [Primary Care Provider] - 1-2 days Time of Disposition: 03:30 - Out of Hospital Transfer - Req. Specs Out of Hospital Transfer - Requested Specifics: Other Emergency Center ([facility]
[2022-04-23 00:02] VITALS: TEMP 98.1
[2022-04-23 00:54] LABS: Basophils # (A) 0.1 k/uL (0-0.2); Basophils % (A) 0 %; Eosinophils # (A) 0.1 k/uL (0-0.7); Eosinophils % (A) 1 %; HCT 46.9 % (34.0-46.0); HGB 15.6 gm/dL (11.4-16.0); Lymphocytes # (A) 0.6 k/uL (1.0-4.8); Lymphocytes % (A) 3 %; MCH 30.1 pg (25.0-35.0); MCHC 33.3 g/dL (31.0-37.0); MCV 90.4 fL (80.0-100.0); Mean Platelet Volume 10.2; Monocytes # (A) 0.9 k/uL (0-1.0); Monocytes % (A) 4 %; Neutrophils # (A) 18.8 k/uL (1.3-7.7); Neutrophils % (A) 92 %; Platelet Count 228 k/uL (150-450); RBC 5.19 m/uL (3.80-5.40); RDW 12.8 % (11.5-15.5); WBC 20.6 k/uL (3.8-10.6)
[2022-04-23 01:01] LABS: ALT 26 U/L (4-34); AST 23 U/L (14-36); African American GFR (CKD) >90 (>60 ml/min/1.73 sqM); Albumin 4.1 g/dL (3.5-5.0); Alkaline Phosphatase 105 U/L (38-126); Amylase 52 U/L (30-110); Anion Gap 7 mmol/L; Blood Urea Nitrogen 12 mg/dL (7-17); Carbon Dioxide 34 mmol/L (22-30); Chloride 99 mmol/L (98-107); Glucose 154 mg/dL (74-99); Lipase 128 U/L (23-300); Non-African American GFR(CKD) >90 (>60 ml/min/1.73 sqM); Potassium 3.5 mmol/L (3.5-5.1); Sodium 140 mmol/L (137-145); Total Bilirubin 0.8 mg/dL (0.2-1.3); Total Protein 6.8 g/dL (6.3-8.2)
[2022-04-23 01:11] LABS: INR 1.1 (<1.2); Prothrombin Time 11.5 sec (9.0-12.0)
--- NOTE | 2022-04-23 02:10 | CT ---
EXAMINATION TYPE: CT ChestAbdPelvis w con DATE OF EXAM: 04/23/2022 COMPARISON: 04/13/2022 HISTORY: Vomitting/pain CT DLP: 2009.3 mGycm Automated exposure control for dose reduction was used. CONTRAST: Performed with IV Contrast, patient injected with 100ml mL of Isovue 300. Images obtained from the thoracic inlet to the floor the pelvis with the IV contrast. There is airspace consolidation and atelectasis left lower lobe. There is a very large hiatal hernia. The stomach is dilated with fluid. There is a high density material in the dependent stomach that is probably calcium medication. Gallbladder is intact. The bile ducts are not dilated. No evidence of pancreatic mass. Gallbladder is intact. The bile ducts are not dilated. Liver shows no focal defect. There is no adrenal mass. Kidneys show satisfactory contrast opacification. No hydronephrosis. Ureter s are not dilated. No retroperitoneal adenopathy. Appendix is posterior and appears normal. Bladder d istends smoothly. Uterus is anteverted. No free fluid in the pelvis. The thoracic and lumbar vertebra appear intact and no compression fracture. The sternum is intact. Bran ny pelvis is intact. Hip joints appear normal. Sacroiliac joints are intact. There is no mesenteric edema. No ascites or free air. No sign of a bowel obstruction. IMPRESSION: Large hiatal hernia with paraesophageal large component in the hiatal hernia and not changed signific antly compared to old exam. The gastric antrum is herniated into the chest along the lower thoracic e sophagus. There is likely some degree of volvulus and gastric outlet obstruction should be considered in view of the markedly dilated stomach. This is also present on old exam. There is left lower lobe infiltrate or atelectasis which is slightly worse than last exam.
[2022-04-23 03:38] VITALS: BP 140/90; PULSE 115; RESP 16
== END 2022-04-23 03:59 ==
LOC: EC 23:54
DX: K44.9 Diaphragmatic hernia without obstruction or gangrene (principal); R11.2 Nausea with vomiting, unspecified; K56.2 Volvulus; K31.89 Other diseases of stomach and duodenum; D72.829 Elevated white blood cell count, unspecified
CPT/HCPCS: 36415; 80053; 82150; 83605; 83690; 85025; 85610; 85730; 71260; 74177; 99285; 96374; 96375 ×2; 96361 ×3; J2270; J2765; J2405; C9113; Q9967

== ENCOUNTER → 2023-09-08 | Outpatient (CLI) | payer OTHER ==
--- NOTE | 2023-09-09 14:21 | MM ---
Reason for Exam: Screening (asymptomatic). Last mammogram was performed 1 year(s) and 7 month(s) ago. Patient History: Menarche at age 11. First Full-Term at age 20. Perimenopausal. Currently using Hormonal Contraceptives, starting at age 39. Paternal grandmother had breast cancer. Mother had ovarian cancer. Last menstrual period: 08/25/2023 Risk Values: Lashonda 5 year model risk: 1.0%. NCI Lifetime model risk: 7.5%. Prior Study Comparison: 02/27/2022 Bilateral MG screening mammo w CAD, PH. Tissue Density: There are scattered areas of fibroglandular density. Findings: Analyzed By CAD. Right breast: There is no suspicious group of microcalcifications or new suspicious mass. Left breast: There is no suspicious group of microcalcifications or new suspicious mass. Overall Assessment: Negative, BI-RAD 1 Management: Screening Mammogram of both breasts in [address] [facility] will attempt to contact patient to return for supplemental views and ultrasound if indicated. Patient should continue monthly self-breast exams. A clinical breast exam by your physician is recommended on an annual basis. This exam should not preclude additional follow-up of suspicious palpable abnormalities. Note on Lashonda scores and lifetime risk: 1. A Lashonda score greater than 3% is considered moderate risk. If this is the case, consider specialist referral to assess eligibility for a risk reducing agent. 2. If overall lifetime risk for the development of breast cancer is 20% or higher, the patient may qualify for future screening with alternating mammogram and breast MRI. Electronically signed and approved by: Jeremie Bello DO
== END | disposition home or self-care (01) ==
LOC: RADMAMWWP 12:34
PROVIDERS: ATTEND Family Medicine
DX: Z12.31 Encounter for screening mammogram for malignant neoplasm of breast (principal); Z80.3 Family history of malignant neoplasm of breast
CPT/HCPCS: 77067

== ENCOUNTER 2024-10-25 17:01 | Emergency (ER) | payer OTHER ==
[2024-10-25 17:05] VITALS: RESP 18
--- NOTE | 2024-10-25 17:36 | ED ---
Psych HPI - General Chief Complaint: Psychiatric Symptoms Stated Complaint: Suicidal Tendencies Time Seen by Provider: 10/25/24 17:19 Source: patient, RN notes reviewed Mode of arrival: ambulatory - History of Present Illness Initial Comments: 54-year-old female presents emergency department with reported suicidal ideation with plan of stabbing herself. On my discussion of the patient she is denying suicidal ideation or suicidal plan. Denies homicidal ideation, auditory visual hallucinations. States that she has not been completely compliant with her antidepressants. No other acute medical complaints at this time. - Related Data Home Medications Medication Instructions Recorded Confirmed Ferrous Sulfate [Iron] 325 mg PO DAILY 10/11/18 10/11/18 Omeprazole 20 mg PO DAILY 10/11/18 10/11/18 Sertraline [Zoloft] 25 mg PO DAILY 10/11/18 10/11/18 oxyBUTYnin chloride [Ditropan XL] 10 mg PO DAILY 10/11/18 10/11/18 Allergies Allergy/AdvReac Type Severity Reaction Status Date / Time No Known Allergies Allergy Verified 10/25/24 17:05 Review of Systems ROS Statement: Those systems with pertinent positive or pertinent negative responses have been documented in the HPI. ROS Other: All systems not noted in ROS Statement are negative. Past Medical History Past Medical History: Asthma, COPD Additional Past Medical History / Comment(s): amenia History of Any Multi-Drug Resistant Organisms: None Reported Past Surgical History: Tubal Ligation Past Psychological History: Depression Past Drug Use History: None Reported General Exam Limitations: no limitations General appearance: alert, in no apparent distress ENT exam: Present: normal exam, mucous membranes moist Neck exam: Present: normal inspection. Absent: tenderness, meningismus, lymphadenopathy Respiratory exam: Present: normal lung sounds bilaterally. Absent: respiratory distress, wheezes, rales, rhonchi, stridor Cardiovascular Exam: Present: regular rate, normal rhythm, normal heart sounds. Absent: systolic murmur, diastolic murmur, rubs, gallop, clicks GI/Abdominal exam: Present: soft, normal bowel sounds. Absent: distended, tenderness, guarding, rebound, rigid Extremities exam: Present: normal inspection, full ROM, normal capillary refill. Absent: tenderness, pedal edema, joint swelling, calf tenderness Back exam: Present: normal inspection Psychiatric exam: Present: depressed. Absent: flat affect, suicidal ideation Course Vital Signs 10/25/24 10/25/24 17:02 20:23 Temperature 97.9 F 98.1 F Pulse Rate 79 81 Respiratory 18 18 Rate Blood Pressure 157/95 161/89 O2 Sat by Pulse 96 97 Oximetry Medical Decision Making - Medical Decision Making Was pt. sent in by a medical professional or institution (, PA, ADULT EDUCATION TEACHER, urgent care, hospital, or retirement...) When possible be specific @ -No Did you speak to anyone other than the patient for history (EMS, parent, family, police, friend...)? What history was obtained from this source @ -No Did you review nursing and triage notes (agree or disagree)? Why? @ -I reviewed and agree with nursing and triage notes Were old charts reviewed (outside hosp., previous admission, EMS record, old EKG, old radiological studies, urgent care reports/EKG's, retirement records)? Report findings @ -No old charts were reviewed Differential Diagnosis (chest pain, altered mental status, abdominal pain women, abdominal pain men, vaginal bleeding, weakness, fever, dyspnea, syncope, headache, dizziness, GI bleed, back pain, seizure, CVA, palpatations, mental health, musculoskeletal)? @ -Differential Mental Health Depression, anxiety, bipolar, psychosis, schizophrenia, borderline personality, situational depression, adjustment disorder, behavioral disorder, brain tumor, malingering, substance abuse, encephalopathy, medication reaction, dementia, hypothyroidism, degenerative neurologic disorder, lupus.... This is not meant to be all-inclusive list EKG interpreted by me (3pts min.). @ -None X-rays interpreted by me (1pt min.). @ -None done CT interpreted by me (1pt min.). @ -None done U/S interpreted by me (1pt. min.). @ -None done What testing was considered but not performed or refused? (CT, X-rays, U/S, labs)? Why? @ -None What meds were considered but not given or refused? Why? @ -None Did you discuss the management of the patient with other professionals (professionals i.e. , PA, ADULT EDUCATION TEACHER, lab, RT, psych nurse, vp digital marketing social media and crm, dependency counselor, teacher, field crop technical officer, case planner)? Give summary @ -EPS nurse who has recommended discharge with safety plan and outpatient follow-up. Was smoking cessation discussed for >3mins.? @ -No Was critical care preformed (if so, how long)? @ -No Were there social determinants of health that impacted care today? How? (Homelessness, low income, unemployed, alcoholism, drug addiction, transportation, low edu. Level, literacy, decrease access to med. care, fci, rehab)? @ -No Was there de-escalation of care discussed even if they declined (Discuss DNR or withdrawal of care, Hospice)? DNR status @ -No What co-morbidities impacted this encounter? (DM, HTN, Smoking, COPD, CAD, Cancer, CVA, ARF, Chemo, Hep., AIDS, mental health diagnosis, sleep apnea, morbid obesity)? @ -None Was patient admitted / discharged? Hospital course, mention meds given and route, prescriptions, significant lab abnormalities, going to OR and other pertinent info. @ -Discharge. 54-year-old female presenting with suicidal ideation. On my discussion the patient she is denying suicidal ideation or current plan. Urine drug screen and BAT unremarkable. EPS has determined a safety plan with the patient. Case discussed with Dr. Reynolds Undiagnosed new problem with uncertain prognosis? @ -No Drug Therapy requiring intensive monitoring for toxicity (Heparin, Nitro, Insulin, Cardizem)? @ -No Were any procedures done? @ -No Diagnosis/symptom? @ -Depression, suicidal ideation Acute, or Chronic, or Acute on Chronic? @ -Acute Uncomplicated (without systemic symptoms) or Complicated (systemic symptoms)? @ -Uncomplicated Side effects of treatment? @ -No Exacerbation, Progression, or Severe Exacerbation? @ -No Poses a threat to life or bodily function? How? (Chest pain, USA, SC, pneumonia, PE, COPD, DKA, ARF, appy, cholecystitis, CVA, Diverticulitis, Homicidal, Suicidal, threat to staff... and all critical care pts) @ -No - Lab Data Lab Results 10/25/24 Range/Units 17:25 Urine Opiates Screen Not Detected (NotDetected) Ur Oxycodone Screen Not Detected (NotDetected) Urine Methadone Screen Not Detected (NotDetected) Ur Barbiturates Screen Not Detected (NotDetected) U Tricyclic Antidepress Not Detected (NotDetected) Ur Phencyclidine Scrn Not Detected (NotDetected) Ur Amphetamines Screen Not Detected (NotDetected) U Methamphetamines Scrn Not Detected (NotDetected) U Benzodiazepines Scrn Not Detected (NotDetected) Urine Cocaine Screen Not Detected (NotDetected) U Marijuana (THC) Screen Not Detected (NotDetected) Disposition Clinical Impression: Depression, Suicidal ideation Disposition: HOME SELF-CARE Condition: Stable Instructions (If sedation given, give patient instructions): Suicide Prevention (ED) Additional Instructions: Please return to the Emergency Department if symptoms worsen or any other concerns. Is patient prescribed a controlled substance at d/c from ED?: No Referrals: Kasey Nieves DO [Primary Care Provider] - 1-2 days Forms: [facility] Time of Disposition: 19:25
[2024-10-25 18:33] LABS: Amphetamine Screen,Urine Not Detected (NotDetected); Barbiturate Screen,Urine Not Detected (NotDetected); Benzodiazepines Screen,Urine Not Detected (NotDetected); Cocaine Screen,Urine Not Detected (NotDetected); Methadone Screen, Urine Not Detected (NotDetected); Opiate Screen,Urine Not Detected (NotDetected); Oxycodone Screen, Urine Not Detected (NotDetected); Phencyclidine Screen,Urine Not Detected (NotDetected); Tricyclic Antidepressant,Urine Not Detected (NotDetected); Urn Cannabinoid Scrn Not Detected (NotDetected)
[2024-10-25 20:25] VITALS: BP 161/89; PULSE 81; TEMP 98.1
== END 2024-10-25 20:00 | disposition home or self-care (01) ==
LOC: EC 17:01
DX: R45.851 Suicidal ideations (principal); F32.A Depression, unspecified
CPT/HCPCS: 80306; 82075; 99284